=== PATIENT | male | born 1995 | race African-American/Black ===

== ENCOUNTER 2018-01-04 09:20 | Emergency (ER) | payer OTHER ==
[~2018-01-04] VITALS: Ht 180.3 cm; Wt 78.9 kg
[~2018-01-04 09:20] MED LIST: IBUPROFEN 800800 M1 PO; NOHOMEMEDICATIONS; PREDNISONE 20 M20 M1 PO; PROAIR HFA8.5 GM; VENTOLIN HFA 1818 GM INH; ZPAK PO
[2018-01-04 09:46] LABS: ABSOLUTE BASOPHILS 0.1 thou/uL (0.0-0.2); ABSOLUTE EOSINOPHILS 0.6 thou/uL (0.0-0.7); ABSOLUTE LYMPHOCYTES 1.6 thou/uL (0.8-5.3); ABSOLUTE MONOCYTES 0.4 thou/uL (0.0-1.2); ABSOLUTE NEUTROPHILS 4.1 thou/uL (1.6-8.1); BASOPHILS 0.8 %; EOSINOPHILS 9.2 %; HEMATOCRIT 43.5 % (42.0-52.0); HEMOGLOBIN 15.1 gm/dL (14.0-18.0); LYMPHOCYTES 23.8 %; MCH 30.5 pg (26.0-34.0); MCHC 34.6 g/dL (28.0-37.0); MONOCYTES 5.7 %; MPV 9.3 fl. (7.2-11.1); NUCLEATED RBCS 0 /100WBC; PLATELET COUNT* 212 thou/uL (150-400); POLYS 60.5 %; RBC 4.95 mil/uL (4.50-6.00); RDW-CV 13.1 % (10.5-14.5); WBC 6.8 thou/uL (4.0-11.0)
[2018-01-04 09:53] LABS: CALCIUM 8.7 mg/dL (8.5-10.1); CREATININE 0.9 mg/dL (0.6-1.3); POTASSIUM 3.8 mmol/L (3.5-5.1)
[2018-01-04 09:58] LABS: ALBUMIN 4.4 g/dL (3.4-5.0); TOTAL BILIRUBIN 0.9 mg/dL (<0.1-1.0)
[2018-01-04] MEDS ORDERED: VENTOLIN HFA 1818 GM INH (10:02)
[2018-01-04] MEDS ORDERED: CARAFATE 1 GM TA1 G1 PO (10:02)
[2018-01-04 10:15] VITALS: BP 114/84
== END 2018-01-04 10:15 | disposition home or self-care (01) ==
LOC: M.ERS 09:20
PROVIDERS: Emergency Medicine Emergency Medical Services
DX: R10.13 Epigastric pain (principal); J45.909 Unspecified asthma, uncomplicated

== ENCOUNTER 2018-09-15 15:12 | Emergency (ER) | payer OTHER ==
[~2018-09-15] VITALS: Ht 180.3 cm; Wt 83.9 kg
[~2018-09-15 15:12] MED LIST changes: +CARAFATE 1 GM TA1 G1 PO
[2018-09-15 15:35] LABS: URINE BLOOD NEGATIVE (Negative); URINE CLARITY CLEAR; URINE COLOR YELLOW; URINE GLUCOSE-RANDOM NEGATIVE (Negative); URINE KETONES TRACE (Negative); URINE LEUKOCYTES-REFLEX NEGATIVE (Negative); URINE NITRITE-REFLEX NEGATIVE (Negative); URINE PROTEIN TRACE (Negative)
[2018-09-15 15:38] LABS: URINE BILIRUBIN 1+ (Negative)
[2018-09-15 15:39] LABS: ICTOTEST (BILI CONFIRMATORY) Negative (Negative)
[2018-09-15 16:05] VITALS: BP 133/70
== END 2018-09-15 16:06 | disposition home or self-care (01) ==
LOC: M.ERS 15:12
PROVIDERS: Physician Assistant
DX: R39.89 Other symptoms and signs involving the genitourinary system (principal)